=== PATIENT | female | born 1950 | race Caucasian/White ===

== ENCOUNTER 2018-04-17 18:49 | Emergency (ER) | payer MEDICARE, MEDICAID ==
[~2018-04-17] VITALS: Ht 170.2 cm; Wt 75.0 kg
[2018-04-17 18:54] VITALS: BP 138/48
[2018-04-17] MEDS ORDERED: BENZ-16 PO (20:34)
== END 2018-04-17 20:43 | disposition home or self-care (01) ==
LOC: ER 18:50
DX: J22 Unspecified acute lower respiratory infection (principal); Z86.73 Personal history of transient ischemic attack (TIA), and cerebral infarction without residual deficits; Z98.890 Other specified postprocedural states; Z88.0 Allergy status to penicillin; Z79.899 Other long term (current) drug therapy
CPT/HCPCS: 71046; 99284

== ENCOUNTER 2018-10-03 14:27 | Outpatient (CLI) | payer MEDICARE, MEDICAID | END 2018-10-03 23:59 | disposition home or self-care (01) | LOC: RAD 14:27 | PROVIDERS: ATTEND Family Medicine | DX: I69.391 Dysphagia following cerebral infarction (principal); R13.12 Dysphagia, oropharyngeal phase; R47.1 Dysarthria and anarthria; R49.0 Dysphonia; Z87.891 Personal history of nicotine dependence | CPT/HCPCS: 74230 ==